=== PATIENT | female | born 1945 | race Two or more races ===

== ENCOUNTER 2018-10-16 16:45 | Inpatient (IN) | payer MEDICARE ==
[~2018-10-16] VITALS: Ht 157.5 cm; Wt 79.8 kg
--- NOTE | 2018-10-16 16:55 | NUR ---
PT BIB [facility] WITH A C/O GLF AT HOME. PT TRIPPED OVER A CAT AND FELL DOWN A SET OF EXTERIOR STAIRS. PT DENIES KO. PT IS C/O RT HEAD PAIN, HEMATOMA AND LEFT KNEE PAIN, WAS AT SET OF EXTERIOR STAIRS . PT IS ON THE MONITOR AND CONTINUOUS PULSE OX. PT IS [place] SPEAKING ONLY.
--- NOTE | 2018-10-16 17:20 | NUR ---
SEEN AND EXAMINED BY DR. ZAMORA.
[2018-10-16] MEDS ORDERED: ONDANSETRON HCL/PF - ER 4 MG/2 ML VIAL IV ONE ×2 (17:30→20:00)
[2018-10-16] MEDS ORDERED: MORPHINE SULFATE INJ 2 MG/ML DISP.SYRIN IV ONE ×2 (17:30→20:00)
--- NOTE | 2018-10-16 17:30 | NUR ---
PT LABS DRAWNED AND SENT TO LAB.
[2018-10-16] MEDS ORDERED: MORPHINE SULFATE INJ 2 MG/ML DISP.SYRIN ONE ×2 (17:31→19:42)
[2018-10-16] MEDS ORDERED: ONDANSETRON HCL/PF 4 MG/2 ML VIAL ONE ×2 (17:31→19:41)
[2018-10-16 17:41] LABS: BASOPHILS % (AUTO) 0.4 % (0.0-2.0); EOSINOPHILS % (AUTO) 1.4 % (0.0-6.0); HEMATOCRIT 40 % (33-45); HEMOGLOBIN 13.6 g/dL (11.5-14.8); LYMPHOCYTES % (AUTO) 11.8 % (20.0-44.0); MEAN CORPUSCULAR HGB CONC 34 g/dl (31.0-36.0); MEAN CORPUSCULAR VOLUME 85 fL (82-100); MONOCYTES # (AUTO) 0.6 /CMM (0.1-1.30); NEUTROPHILS % (AUTO) 79.4 % (43.0-81.0); PLATELET COUNT (AUTO) 174 /CMM (150-450); RED BLOOD CELL COUNT(AUTO) 4.74 MIL/uL (4.0-5.2); WHITE BLOOD COUNT (AUTO) 8.8 K/uL (4.3-11.0)
[2018-10-16 17:56] LABS: CALCIUM, SERUM 9.1 mg/dL (8.5-10.1); CARBON DIOXIDE 31 mmol/L (21-32); CHLORIDE 104 mmol/L (98-107); CREATININE 0.6 mg/dL (0.6-1.3); GLUCOSE 191 mg/dL (74-106); POTASSIUM 3.8 mmol/L (3.5-5.1); SODIUM SERUM 139 mmol/L (136-145); UREA NITROGEN, BLOOD 17 mg/dL (7-18)
--- NOTE | 2018-10-16 18:11 | NUR ---
PT IS BACK FROM THE XRAY.
[2018-10-16] MEDS ORDERED: HYDROMORPHONE INJ 2 MG/ML DISP.SYRIN IV PRN (20:30)
[2018-10-16] MEDS ORDERED: MAGNESIUM HYDROXIDE 30 ML UDC PO PRN (20:30)
[2018-10-16] MEDS ORDERED: MAG HYDROX/AL HYDROX/SIMETH 30 ML UDC PO PRN (20:30)
--- NOTE | 2018-10-16 20:55 | NUR ---
REPORT GIVEN TO PRATEEK DECKER FOR YAIR.
--- NOTE | 2018-10-16 21:13 | NUR ---
PT IS BACK FROM THE CT SCAN.
[2018-10-16 21:30] VITALS: BP 130/73
--- NOTE | 2018-10-16 21:30 | NUR ---
MS/RN NOTES RECEIVED NEW ADMITTED PATIENT ARRIVED ON A GURNEY FROM ER, A 72 Y.O [place] SPEAKING OBESE FEMALE ACCOMPANIED BY CAN UNDERSTAND SIMPLE INSTRUCTIONS, COMPLIANT TO CARE, ALERT, ORIENTED X3, BELONGINGS CHECK, ROOM ORIENTATION PROVIDED, INVENTORY CHECK,WITH NO KNOW MEDICAL HX, WITH GLF, REPORTED SEVERE PAIN ON LEFT KNEE ,PAIN TOLERABLE PER PATIETN , SKIN CHECK WITH SOME SCAB BROWN COLOR IN BACK., RECIVED ORDERS BY ADMITTING DR MD HAUSER TO INSERT BORRERO AND IV HYDRATION, RIGHT AC GAUGE 18 PATENT, NPO DIET AND WITH LEFT KNEE IMPAIRMENT. LOVENOX WAS ORDERED AND NO HOME MEDICATION REPORTED. WILL CONTINUE CARE.
[2018-10-16 22:28] VITALS: BP 130/73
[2018-10-16] MEDS: ENOXAPARIN SODIUM 40 MG/0.4 ML DISP.SYRIN SQ SCH (23:36)
[2018-10-17] MEDS: IV NS 0.9% 1,000 ML IV PRN ×2 (00:21→17:38)
--- NOTE | 2018-10-17 05:23 | NUR ---
ms/rn notes: PAIN MEDICATION ADMINISTERED VIA IV SITE, DILAUDID 0.5MG/0.25 ML AWAKE, ALERT, BLOOD PRESSURE CHECK AT 143/73, RESPIRATIONS EVEN AND UNLABORED.
--- NOTE | 2018-10-17 06:00 | NUR ---
MS/RN NOTES PATIENT AWAKE, ALERT, LAST PAIN MEDICATION GIVEN AT 0530, SKIN WARM TO TOUCH. RESPIRATIONS EVEN AND UNLABORED. ENDORSE TO AM RN FOR YAIR.
[2018-10-17 06:26] LABS: BASOPHILS % (AUTO) 0.3 % (0.0-2.0); EOSINOPHILS % (AUTO) 0.3 % (0.0-6.0); HEMATOCRIT 38 % (33-45); HEMOGLOBIN 12.7 g/dL (11.5-14.8); MEAN CORPUSCULAR HGB CONC 34 g/dl (31.0-36.0); MEAN CORPUSCULAR VOLUME 84 fL (82-100); MONOCYTES # (AUTO) 0.7 /CMM (0.1-1.30); MONOCYTES % (AUTO) 8.8 % (2.0-12.0); NEUTROPHILS # (AUTO) 6.5 /CMM (1.8-8.9); NEUTROPHILS % (AUTO) 78.6 % (43.0-81.0); PLATELET COUNT (AUTO) 157 /CMM (150-450); RED BLOOD CELL COUNT(AUTO) 4.46 MIL/uL (4.0-5.2); WHITE BLOOD COUNT (AUTO) 8.3 K/uL (4.3-11.0)
[2018-10-17 06:48] LABS: CHOLESTEROL 174 mg/dL (<200); HDL CHOLESTEROL 42 mg/dL (40-60); LDL 113 mg/dL (0-99); THYROID STIMULATING HORMONE 2.114 uIU/mL (0.358-3.74); TRIGLYCERIDES 144 mg/dL (30-150)
[2018-10-17 06:50] LABS: CALCIUM, SERUM 8.3 mg/dL (8.5-10.1); CARBON DIOXIDE 27 mmol/L (21-32); CHLORIDE 105 mmol/L (98-107); CREATININE 0.6 mg/dL (0.6-1.3); GLUCOSE 176 mg/dL (74-106); PHOSPHORUS 3.2 mg/dL (2.5-4.9); POTASSIUM 3.9 mmol/L (3.5-5.1); SODIUM SERUM 141 mmol/L (136-145); UREA NITROGEN, BLOOD 13 mg/dL (7-18)
[2018-10-17 08:00] VITALS: BP 140/66
--- NOTE | 2018-10-17 08:00 | NUR ---
ms rn received on bed, awake,alert,oriented x4, icelandic speaking, left knee fracture w/ immobilizer on, no distress noted.
[2018-10-17] MEDS ORDERED: DEXTROSE 50%-WATER 50 ML DISP.SYRIN IV PRN (08:30)
[2018-10-17] MEDS: PANTOPRAZOLE 40 MG TABLET.DR PO SCH (09:00)
[2018-10-17] MEDS ORDERED: PANTOPRAZOLE 40 MG VIAL IV SCH (09:00)
[2018-10-17] MEDS: HYDROMORPHONE INJ 2 MG/ML DISP.SYRIN IV PRN ×2 (09:14→16:48)
--- NOTE | 2018-10-17 09:20 | NUR ---
ms morrissey breakfast served,due meds given,tolerated well.
--- NOTE | 2018-10-17 10:00 | NUR ---
ms rn was seen by ortho, will have surgery in am.ok to eat at this time.
[2018-10-17] MEDS: ONDANSETRON HCL/PF 4 MG/2 ML VIAL IVP PRN ×2 (10:08→16:48)
[2018-10-17] MEDS: BLOOD SUGAR DIAGNOSTIC 1 EACH STRIP IN SCH ×3 (12:17→21:56)
--- NOTE | 2018-10-17 13:00 | NUR ---
ms rn bs - 170 - refused coverage, patient is not eating.
[2018-10-17] MEDS: INSULIN REGULAR, HUMAN 100 UNIT/ML 3 ML VIAL SQ PRN ×2 (17:58→22:00)
--- NOTE | 2018-10-17 18:06 | NUR ---
ms rn on bed, no distress noted, all needs attended.
--- NOTE | 2018-10-17 19:35 | NUR ---
MS RN NOTES RECEIVED ON BED SLEEPING,AROUSABLE TO VERBAL STIMULI.DAUGHTER AT BEDSIDE.SALINE LOCK RIGHT AC INTACT AND PATENT,NS AT 75ML/HR RATE IN PROGRESS.S/P FALL AT HOME,SUSTAINED FRACTURE ON LEFT KNEE.INSTRUCTED NPO POST MIDNIGHT FOR SURGERY IN AM BY DR TY.WITH BORRERO CATH IN PLACE DRAING CLEAR YELLOW OUTPUT.CALL LIGHT IN REACH,NEEDS ANTICIPATED.
[2018-10-17 20:00] VITALS: BP 122/66
[2018-10-17 20:25] VITALS: BP 122/66
[2018-10-17] MEDS: ENOXAPARIN SODIUM 40 MG/0.4 ML DISP.SYRIN SQ SCH (21:00)
--- NOTE | 2018-10-17 21:12 | NUR ---
MS RN NOTES LOVENOX 40MG SQ HOLD PER WAYNE ACNP,PATIENT GOING FOR LEFT KNEE ORIF IN THE MORNING AT 0730.
--- NOTE | 2018-10-17 22:05 | NUR ---
MS RN NOTES ACCU-CHECK BLOOD SUGAR CHECK 187,REFUSED 3 UNITS OF HUMULIN R,NPO STATUS FOR SURGERY IN THE MORNING
[2018-10-18] MEDS: BLOOD SUGAR DIAGNOSTIC 1 EACH STRIP IN SCH (05:19)
[2018-10-18] MEDS: INSULIN REGULAR, HUMAN 100 UNIT/ML 3 ML VIAL SQ PRN ×2 (05:29→18:00)
--- NOTE | 2018-10-18 05:31 | NUR ---
MS RN NOTES ACCU-CHECK BLOOD SUGAR CHECK 155,HUMULIN R 2 UNITS HELD,NPO FOR SURGERY
--- NOTE | 2018-10-18 06:20 | NUR ---
MS RN NOTES ON BED AWAKE,ALERT,ORIENTED X3,SPEAK GREENLANDIC WITH LITTLE COOK ISLANDER.IVF IN PROGRESS ON RIGHT AC VIA IV PUMP.DAUGHTER LINO CAME AND SIGNED THE CONSENT FOR ORIF LEFT KNEE.KEPT NPO.NEEDS ATTENDED.WILL ENDORSE TO DAY NURSE FOR YAIR.
[2018-10-18 06:25] LABS: BASOPHILS % (AUTO) 0.2 % (0.0-2.0); EOSINOPHILS % (AUTO) 0.7 % (0.0-6.0); HEMATOCRIT 34 % (33-45); HEMOGLOBIN 11.4 g/dL (11.5-14.8); LYMPHOCYTES # (AUTO) 1.3 /CMM (0.8-4.8); LYMPHOCYTES % (AUTO) 15.9 % (20.0-44.0); MEAN CORPUSCULAR HGB CONC 34 g/dl (31.0-36.0); MEAN CORPUSCULAR VOLUME 84 fL (82-100); MONOCYTES # (AUTO) 0.8 /CMM (0.1-1.30); MONOCYTES % (AUTO) 9.5 % (2.0-12.0); NEUTROPHILS # (AUTO) 5.9 /CMM (1.8-8.9); NEUTROPHILS % (AUTO) 73.7 % (43.0-81.0); PLATELET COUNT (AUTO) 138 /CMM (150-450); WHITE BLOOD COUNT (AUTO) 8.1 K/uL (4.3-11.0)
[2018-10-18 06:53] LABS: CALCIUM, SERUM 8.4 mg/dL (8.5-10.1); CARBON DIOXIDE 28 mmol/L (21-32); CHLORIDE 104 mmol/L (98-107); CREATININE 0.6 mg/dL (0.6-1.3); GLUCOSE 152 mg/dL (74-106); PHOSPHORUS 2.5 mg/dL (2.5-4.9); POTASSIUM 3.6 mmol/L (3.5-5.1); SODIUM SERUM 142 mmol/L (136-145); UREA NITROGEN, BLOOD 11 mg/dL (7-18)
[2018-10-18] MEDS: IV NS 0.9% 1,000 ML IV PRN (06:54)
[2018-10-18] MEDS ORDERED: BUPIVACAINE 0.5 % PF 150 MG/30 ML VIAL ONE ×2 (07:13→07:27)
[2018-10-18] MEDS ORDERED: ANESTHESIA TRAY IN PYXIS 1 EA TRAY MC ONE (07:13)
[2018-10-18] MEDS ORDERED: BACITRACIN 50000 UNITS/VIAL ONE (07:13)
[2018-10-18] MEDS ORDERED: FENTANYL PF 100MCG/2ML AMPUL ONE ×2 (07:26→10:00)
--- NOTE | 2018-10-18 07:35 | NUR ---
MS RN PATIENT AT OR AT THIS TIME FOR LEFT KNEE SURGERY.
[2018-10-18] MEDS ORDERED: TOBRAMYCIN 80 MG/2 ML VIAL INH ONE (08:14)
[2018-10-18] MEDS ORDERED: VANCOMYCIN 1 GM in IV D5W 250ml IV ONE (08:30)
[2018-10-18] MEDS ORDERED: DEXTROSE 50%-WATER 50 ML DISP.SYRIN IV PRN (09:00)
[2018-10-18] MEDS: PANTOPRAZOLE 40 MG TABLET.DR PO SCH (09:00)
[2018-10-18] MEDS ORDERED: HYDROMORPHONE 1 MG/1 ML DISP.SYRIN ONE (09:59)
[2018-10-18 10:30] VITALS: BP 139/65
--- NOTE | 2018-10-18 10:30 | NUR ---
ms rn just came back from surgery, awake,alert, oriented x4,surgical site covered w/ dressing dry and intact, immobilizer intact.will monitor v/s.
[2018-10-18 11:00] LABS: BASOPHILS % (AUTO) 0.1 % (0.0-2.0); EOSINOPHILS % (AUTO) 0.2 % (0.0-6.0); HEMATOCRIT 34 % (33-45); HEMOGLOBIN 11.5 g/dL (11.5-14.8); LYMPHOCYTES # (AUTO) 0.6 /CMM (0.8-4.8); MEAN CORPUSCULAR HGB CONC 34 g/dl (31.0-36.0); MEAN CORPUSCULAR VOLUME 85 fL (82-100); MONOCYTES # (AUTO) 0.3 /CMM (0.1-1.30); MONOCYTES % (AUTO) 3.4 % (2.0-12.0); NEUTROPHILS # (AUTO) 8.6 /CMM (1.8-8.9); NEUTROPHILS % (AUTO) 90.3 % (43.0-81.0); PLATELET COUNT (AUTO) 139 /CMM (150-450); RED BLOOD CELL COUNT(AUTO) 4.03 MIL/uL (4.0-5.2); WHITE BLOOD COUNT (AUTO) 9.6 K/uL (4.3-11.0)
[2018-10-18 11:04] LABS: CALCIUM, SERUM 7.8 mg/dL (8.5-10.1); CARBON DIOXIDE 28 mmol/L (21-32); CHLORIDE 107 mmol/L (98-107); CREATININE 0.7 mg/dL (0.6-1.3); GLUCOSE 197 mg/dL (74-106); POTASSIUM 3.9 mmol/L (3.5-5.1); SODIUM SERUM 143 mmol/L (136-145); UREA NITROGEN, BLOOD 11 mg/dL (7-18)
[2018-10-18] MEDS: BLOOD SUGAR DIAGNOSTIC 1 EACH STRIP VI SCH ×3 (12:00→22:02)
[2018-10-18] MEDS ORDERED: HYDROCODONE/APAP 5/325MG 1 EACH TABLET PO PRN ×2 (12:00)
[2018-10-18 16:42] VITALS: BP 149/70
[2018-10-18] MEDS: ANCEF 1 GM/50 ML D5W IV SCH ×2 (16:55)
--- NOTE | 2018-10-18 17:00 | NUR ---
ms rn went down to ct chest.
[2018-10-18] MEDS ORDERED: CT SWABBABLE VALVE TRANS SET 1 EA INFUS.SET MC ONE (17:26)
[2018-10-18] MEDS ORDERED: IV NS 0.9% 250 ML IV ONE (17:26)
[2018-10-18] MEDS ORDERED: IOHEXOL-300 100 ML VIAL IV ONE (17:26)
--- NOTE | 2018-10-18 17:30 | NUR ---
ms morrissey bs- 239 - 6 units of regular insulin given.
[2018-10-18] MEDS: ACETAMINOPHEN 325 MG TABLET PO PRN (18:00)
--- NOTE | 2018-10-18 18:13 | NUR ---
ms rn on bed, no distress noted.
--- NOTE | 2018-10-18 19:35 | NUR ---
MS RN NOTES RECEIVED ON BED A/O X3.SPEAK CYMRAES WITH LITTLE COSTA RICAN,S/P LEFT KNEE ORIF,KNEE IMMOBILIZER IN USED,DVT IN USED ON RIGHT LEG.IVF IN PROGRESS ON RIGHT AC VIA IV PUMP.PAIN TOLERABLE THE MOMENT. AT BEDSIDE.CALL LIGHT IN REACH,NEEDS ANTICIPATED.
[2018-10-18 20:00] VITALS: BP 120/61
[2018-10-18] MEDS: *INSULIN REGULAR(HUMULIN R)HUM 100 UNIT/ML VIAL SQ PRN (22:08)
--- NOTE | 2018-10-18 22:15 | NUR ---
MS RN NOTES ACCU-CHECK BLOOD SUGAR CHECK 135,REFUSED HUMULIN R 2 UNITS PER SLIDING SCALE.
--- NOTE | 2018-10-18 22:20 | NUR ---
MS RN NOTES IV SITE LEAKING.NEW SALINE LOCK PLACE ON RIGHT HAND #22,SAME IVF RE STARTED.
[2018-10-19] MEDS: ANCEF 1 GM/50 ML D5W IV SCH ×2 (02:08)
[2018-10-19] MEDS: ACETAMINOPHEN 325 MG TABLET PO PRN ×2 (05:25→17:45)
--- NOTE | 2018-10-19 05:25 | NUR ---
MS RN NOTES C/O MILD PAIN ON LEFT KNEE,MEDICATED WITH TYLENOL 650MG PO PER PATIENT REQUEST.
[2018-10-19] MEDS: BLOOD SUGAR DIAGNOSTIC 1 EACH STRIP VI SCH ×4 (05:27→22:32)
[2018-10-19] MEDS: INSULIN REGULAR, HUMAN 100 UNIT/ML 3 ML VIAL SQ PRN ×3 (05:35→17:47)
--- NOTE | 2018-10-19 06:00 | NUR ---
MS RN NOTES SLEPT WITH INTERVAL,TYLENOL EFFECTIVE FOR MILD PAIN ON LEFT KNEE.CALL LIGHT IN REACH,NEEDS ANTICIPATED
[2018-10-19 06:41] LABS: BASOPHILS % (AUTO) 0.1 % (0.0-2.0); EOSINOPHILS % (AUTO) 0.1 % (0.0-6.0); HEMATOCRIT 31 % (33-45); HEMOGLOBIN 10.5 g/dL (11.5-14.8); LYMPHOCYTES # (AUTO) 1.4 /CMM (0.8-4.8); LYMPHOCYTES % (AUTO) 16.3 % (20.0-44.0); MEAN CORPUSCULAR HGB CONC 34 g/dl (31.0-36.0); MEAN CORPUSCULAR VOLUME 85 fL (82-100); MONOCYTES # (AUTO) 0.9 /CMM (0.1-1.30); MONOCYTES % (AUTO) 10.6 % (2.0-12.0); NEUTROPHILS # (AUTO) 6.2 /CMM (1.8-8.9); NEUTROPHILS % (AUTO) 72.9 % (43.0-81.0); PLATELET COUNT (AUTO) 152 /CMM (150-450); RED BLOOD CELL COUNT(AUTO) 3.61 MIL/uL (4.0-5.2); WHITE BLOOD COUNT (AUTO) 8.6 K/uL (4.3-11.0)
[2018-10-19 06:50] LABS: CALCIUM, SERUM 7.9 mg/dL (8.5-10.1); CARBON DIOXIDE 29 mmol/L (21-32); CHLORIDE 106 mmol/L (98-107); CREATININE 0.6 mg/dL (0.6-1.3); GLUCOSE 159 mg/dL (74-106); PHOSPHORUS 2.2 mg/dL (2.5-4.9); POTASSIUM 3.6 mmol/L (3.5-5.1); SODIUM SERUM 142 mmol/L (136-145); UREA NITROGEN, BLOOD 15 mg/dL (7-18)
--- NOTE | 2018-10-19 07:50 | NUR ---
MS RN OPENING NOTES RECEIVED PATIENT IN STABLE CONDITION. IN NO APPARENT DISTRESS. BEDSIDE RAILS ARE UPX2. BED IS LOCKED AND LOWERED. CALL LIGHT IS WITHIN REACH. IV LINE IS INTACT AND PATENT. WILL CONTINUE TO MONITOR PATIENT.
[2018-10-19 08:00] VITALS: BP 120/50
[2018-10-19] MEDS: PANTOPRAZOLE 40 MG TABLET.DR PO SCH (08:26)
[2018-10-19] MEDS: ENOXAPARIN SODIUM 40 MG/0.4 ML DISP.SYRIN SQ SCH (08:26)
[2018-10-19] MEDS ORDERED: K PHOS NEUTRAL 250 MG TABLET PO ONE (13:30)
[2018-10-19 16:00] VITALS: BP 137/70
--- NOTE | 2018-10-19 18:41 | NUR ---
MS RN CLOSING NOTES PATIENT IS IN STABLE CONDITION. IN NO APPARENT DISTRESS. BEDSIDE RAILS ARE UPX2. BED IS LOCKED AND LOWERED. CALL LIGHT IS WITHIN REACH. IV LINE IS INTACT AND PATENT. WILL ENDORSE CARE TO [facility] FILLING MACHINE OPERATOR NURSE FOR YAIR.
--- NOTE | 2018-10-19 19:45 | NUR ---
RN NOTES RECEIVED PATIENT IN STABLE CONDITION. IN NO APPARENT DISTRESS. ALL SAFETY MEASURES IN PLACED, BEDSIDE RAILS ARE UPX2. BED IS LOCKED AND LOWERED. CALL LIGHT IS WITHIN REACH. IV LINE IS INTACT AND PATENT. WILL CONTINUE TO MONITOR ACCORDINGLY.
[2018-10-19 20:00] VITALS: BP 133/73
[2018-10-19] MEDS: *INSULIN REGULAR(HUMULIN R)HUM 100 UNIT/ML VIAL SQ PRN (22:30)
[2018-10-20] MEDS: BLOOD SUGAR DIAGNOSTIC 1 EACH STRIP VI SCH ×2 (06:19→11:01)
[2018-10-20 06:20] LABS: BASOPHILS % (AUTO) 0.2 % (0.0-2.0); EOSINOPHILS % (AUTO) 1.6 % (0.0-6.0); HEMATOCRIT 30 % (33-45); HEMOGLOBIN 10.5 g/dL (11.5-14.8); LYMPHOCYTES # (AUTO) 1.3 /CMM (0.8-4.8); LYMPHOCYTES % (AUTO) 17.9 % (20.0-44.0); MEAN CORPUSCULAR HGB CONC 35 g/dl (31.0-36.0); MEAN CORPUSCULAR VOLUME 84 fL (82-100); MONOCYTES # (AUTO) 0.7 /CMM (0.1-1.30); MONOCYTES % (AUTO) 9.7 % (2.0-12.0); NEUTROPHILS # (AUTO) 5.1 /CMM (1.8-8.9); NEUTROPHILS % (AUTO) 70.6 % (43.0-81.0); PLATELET COUNT (AUTO) 177 /CMM (150-450); RED BLOOD CELL COUNT(AUTO) 3.59 MIL/uL (4.0-5.2); WHITE BLOOD COUNT (AUTO) 7.2 K/uL (4.3-11.0)
[2018-10-20] MEDS: INSULIN REGULAR, HUMAN 100 UNIT/ML 3 ML VIAL SQ PRN ×2 (06:21→11:03)
[2018-10-20 06:31] LABS: CALCIUM, SERUM 8.1 mg/dL (8.5-10.1); CARBON DIOXIDE 28 mmol/L (21-32); CHLORIDE 106 mmol/L (98-107); CREATININE 0.5 mg/dL (0.6-1.3); GLUCOSE 156 mg/dL (74-106); PHOSPHORUS 2.8 mg/dL (2.5-4.9); POTASSIUM 3.5 mmol/L (3.5-5.1); SODIUM SERUM 143 mmol/L (136-145); UREA NITROGEN, BLOOD 14 mg/dL (7-18)
[2018-10-20] MEDS: ACETAMINOPHEN 325 MG TABLET PO PRN (06:41)
--- NOTE | 2018-10-20 07:28 | NUR ---
RN NOTES PATIENT IN STABLE CONDITION. IN NO APPARENT DISTRESS. ALL SAFETY MEASURES IN PLACED, BEDSIDE RAILS ARE UPX2. BED IS LOCKED AND LOWERED. CALL LIGHT IS WITHIN REACH. IV LINE IS INTACT AND PATENT. ENDORSED TO AM NURSE FOR CONTINUITY OF CARE.
--- NOTE | 2018-10-20 07:30 | NUR ---
MS RN OPENING NOTES PATIENT IS A/OX4, IN NO APPARENT DISTRESS. BED RAILS UP X2. BED IS LOCKED AND LOWERED. CALL LIGHT WITHIN REACH. IV INTACT AND PATENT. WILL CONTINUE TO MONITOR.
[2018-10-20 08:00] VITALS: BP 133/58
[2018-10-20] MEDS: PANTOPRAZOLE 40 MG TABLET.DR PO SCH (08:04)
[2018-10-20] MEDS: ENOXAPARIN SODIUM 40 MG/0.4 ML DISP.SYRIN SQ SCH (08:06)
[2018-10-20] MEDS ORDERED: PANT40TA2 PO (10:34)
[2018-10-20] MEDS ORDERED: MAGN400O6 PO (10:34)
[2018-10-20] MEDS ORDERED: HYDR-3972 PO (10:34)
[2018-10-20] MEDS ORDERED: ACET325T53 PO (10:34)
[2018-10-20] MEDS ORDERED: MAG30ORA PO (10:34)
[2018-10-20] MEDS ORDERED: ENOX40DI SQ (10:34)
[2018-10-20] MEDS ORDERED: *INS REG SQ (10:34)
[2018-10-20] MEDS ORDERED: INSU100V28 SQ (10:34)
--- NOTE | 2018-10-20 14:05 | NUR ---
MS SUMMER NANNY NOTES PATIENT DISCHARGED IN STABLE CONDITION. IN NO APPARENT DISTRESS. IV LINE AND ID BAND WERE REMOVED. BORRERO CATHETER WAS REMOVED. REPORT GIVEN TO CYNTHIA CHANDRA AT [facility].EXITCARE WAS SIGNED AND PROVIDED TO THE PATIENT. BELONGINGS WERE CHECKED AND GIVEN TO THE PATIENT. DISCHARGE PICTURES WERE TAKEN AND PLACED IN CHART. ALL NEEDS WERE MET. PATIENT WAS ESCORTED OUT OF THE FACILITY VIA GURNEY BY EMT.
== END 2018-10-20 14:00 | DRG 493 ==
LOC: ER 16:47 → MED 20:51
PROVIDERS: ADMIT Nurse Practitioner Acute Care; ATTEND Registered Nurse
PROC: 0QSH04Z Reposition Left Tibia with Internal Fixation Device, Open Approach (ICD-10-PCS; principal; 2018-10-18)
DX: S82.142A Displaced bicondylar fracture of left tibia, initial encounter for closed fracture (principal); D68.59 Other primary thrombophilia; J98.11 Atelectasis; S82.452A Displaced comminuted fracture of shaft of left fibula, initial encounter for closed fracture; Y92.009 Unspecified place in unspecified non-institutional (private) residence as the place of occurrence of the external cause; E66.9 Obesity, unspecified; E11.65 Type 2 diabetes mellitus with hyperglycemia; Z68.30 Body mass index [BMI] 30.0-30.9, adult; W10.9XXA Fall (on) (from) unspecified stairs and steps, initial encounter; G47.33 Obstructive sleep apnea (adult) (pediatric)
CPT/HCPCS: 36415; 70450-TC; 71045-TC; 71260-TC; 73030-TC; 73560-TC; 73564-TC; 73700-TC; 80048-TC; 80061-TC; 82962-TC; 83735-TC; 84100-TC; 84443-TC; 85025-TC; 85730-TC; 87081-TC; 97110-TC; 97116-TC; 97530-TC; G0378; J0690; J1100; J1170; J1650; J1815; J2270; J2405; J2704; J3010; J3260; J3370; J3490; J7030; J7050; J7060; L1830; Q9967